=== PATIENT | female | born 1955 | race Caucasian/White ===

== ENCOUNTER → 2024-05-17 08:34 | Outpatient (REF) | payer MEDICARE, SELFPAY | LOC: WDC 08:34 | PROVIDERS: ATTENDING PHYSICIAN Family Medicine | DX: Z12.31 Encounter for screening mammogram for malignant neoplasm of breast (principal) | CPT/HCPCS: 77063; 77067 ==

== ENCOUNTER 2024-10-08 16:54 | Emergency (ER) | payer MEDICARE, SELFPAY ==
[2024-10-08 17:05] VITALS: BP 121/75
[2024-10-08 19:26] VITALS: BP 114/56
--- NOTE | 2024-10-08 20:27 | ED.GENMED ---
History of Present Illness
General
Chief Complaint: DVT/Possible Blood Clot
Source: patient and spouse
Time Seen by Provider: 10/08/24 17:47
History of Present Illness
History of Present Illness:
69-year-old female who presents with pain and redness to the right calf. She has a long history of having varicose veins. She states she was recently working her boots, felt almost like a pop in that area. She had noticed some hardness and
palpable cord. Patient presents for evaluation. She again has a long history of varicose veins. She is otherwise healthy. Denies shortness of breath or leg swelling. No numbness or tingling. Spouse says that she is very active.
Past History
Past History
ED Past Medical History: Arrthythmia (SVT) and Other (Varicose veins)
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
Social History
Tobacco: Non-smoker
Alcohol: None
Personal:
Living: with family
Employment: Employed ([employer])
Family History
Family History: Other (Noncontributory)
Phy Exam
Physical Exam
Physical Exam:
CONSTITUTIONAL Vital signs reviewed, Patient alert and oriented to person, place and time. Well-appearing
HEAD atraumatic, normocephalic.
EYES eyelids normal to inspection, Extraocular muscles intact, Conjunctiva normal, Sclera normal.
NECK normal range of motion, Trachea midline, no jugular venous distention.
RESP no respiratory distress
BACK No obvious deformities
UPPER EXTREMITY Gross Range of motion normal, gross motor strength normal
LOWER EXTREMITY Gross range of motion normal, Gross motor strength normal, no edema, varicose veins noted throughout the right lower extremity and up into the saphenous vein area just proximal to the right knee. Patient also has indurated area on
the medial right calf with palpable superficial clot. There is mild redness surrounding this. Mild tenderness
NEURO Speech normal, No focal motor deficits include, Renee coma scale 15, Memory normal, Cranial Nerves intact to screening exam.
SKIN Skin warm, dry, and normal in color.
PSYCHIATRIC Patient oriented to person place and time, Normal affect.
Course
Orders/Labs/Results
Orders:
Orders
10/08/24 16:55
Periph Venous Lwr Ext Rt US [US Periph Venous LOWER Ext RT] Urgent
Comment:
Reason For Exam: pain, hard varicose veins
Vital Signs
Initial and Last Documented VS:
Initial Vital Signs
Temp Pulse Resp BP Pulse Ox
98.8 F 110 16 121/75 97
10/08/24 17:05 10/08/24 17:05 10/08/24 17:05 10/08/24 17:05 10/08/24 17:05
Last Documented Vital Signs
Temp Pulse Resp BP Pulse Ox
98.8 F 86 18 114/56 98
10/08/24 17:05 10/08/24 19:26 10/08/24 19:26 10/08/24 19:26 10/08/24 19:26
MDM/Problems Addressed
Differential Diagnosis Includes:
DVT, cellulitis, superficial thrombophlebitis
MDM/Problems Addressed:
Superficial thrombophlebitis
*Radiology
Radiology exam reviewed: radiology read reviewed
*Pulse Oximetry
Patient hypoxic: no
*Critical Care Note
Total Time (30-74mins, 75-104mins- exclusive of procedures): Not Applicable
Data Reviewed
Source: patient and spouse
Prescriptions/Medications Considered But Not Given:
Considered Xarelto or Eliquis but no DVT
Patient Management
Escalation/DeEscalation of care consider admission/obs:
Patient is well-appearing with supra thrombophlebitis. Will recommend 81 mg aspirin as well as warm compresses and soaks. Patient agrees and will follow-up as an outpatient
ED Attending Note
-
Portions of this chart may have been created with voice recognition software.� Occasional wrong word or��sound alike� substitutions may have occurred due to the inherent limitations of voice recognition software.
Discharge Plan
Departure
Patient Disposition: Home (Routine Discharge)
Date of Disposition: 10/08/24
Time of Disposition: 20:27
Patient with high blood pressure during this ER visit?: No
Discharge Problem:
Superficial thrombophlebitis
Instructions: Superficial vein phlebitis and thrombosis
Prescriptions:
No Action
calcium carb-D3-mag ox-zinc ox [Atif Mag Zinc Plus D3] 1 EACH tablet
1 tab PO DAILY
propranolol 20 MG tablet
20 mg PO BID PRN (Reason: palpitations) Qty: 20 0RF
Referrals:
Estela Banks, [Family Provider] -
Activity Restrictions/Additional Instructions:
Please take 81 mg of aspirin daily. Please apply warm compresses as discussed. Return immediately for increased redness, fevers or any other concerns. Please see your doctor next 1 week if symptoms persist. Also consider seeing a vein specialist
for further management
Interventions
Interventions:
*Risk Screen - Suicide Last Done: 10/08/24 17:07
*Neglect/Abuse Screening Last Done: 10/08/24 17:07
*ED COVID-19 Vaccine History Last Done: 10/08/24 17:07
ED- Cardiac Assessment Last Done: 10/08/24 18:01
ED- Pulmonary Assessment Last Done: 10/08/24 18:01
ED-Peripheral Vascular Assessment Last Done: 10/08/24 18:01
ED-Skin Assessment Last Done: 10/08/24 18:01
Discharge Date and Time
Print Language: KAZAKH
== END 2024-10-08 20:45 | disposition home or self-care (01) ==
LOC: EMR 16:54
PROVIDERS: EMERGENCY PHYSICIAN Emergency Medicine; FAMILY PHYSICIAN Family Medicine
DX: I80.9 Phlebitis and thrombophlebitis of unspecified site (principal); M25.561 Pain in right knee; I47.10 Supraventricular tachycardia, unspecified; I83.90 Asymptomatic varicose veins of unspecified lower extremity
CPT/HCPCS: 99284; 93971

== ENCOUNTER 2024-10-16 09:55 | Emergency (ER) | payer MEDICARE, SELFPAY ==
[2024-10-16 10:03] VITALS: BP 140/85
[2024-10-16 11:34] VITALS: BP 143/99; BMI 20.8
[2024-10-16 12:00] VITALS: BP 129/86
[2024-10-16 13:28] VITALS: BP 129/85
--- NOTE | 2024-10-16 13:45 | CM ---
CM attempted to call patient's [facility] pharmacy. Pharmacy is closed for lunch. CM will call back.
--- NOTE | 2024-10-16 13:55 | ED.GENMED ---
History of Present Illness
General
Chief Complaint: Musculo-Skeletal Complaint
Source: patient
Exam Limitations: none
Time Seen by Provider: 10/16/24 12:50
Nursing documentation reviewed up to this point in time: agreed with
History of Present Illness
History of Present Illness:
69 y/o F
h/o SVT
here with right thigh redness/swelling for a few days
last week 10/08 was seen here for calf vein swelling secondary to superficial thrombophlebitis
pt had no DVT
she was treated with 81 mg asa and has been doin gwarm compresses and now that area is not red and tender but she has a medial thigh swelling and redness that is similar
no cp, sob, fever, chils numbness
she is very active and concerned about AC.
Past History
Past History
ED Past Medical History: Arrthythmia (SVT) and Other (Varicose veins)
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
Social History
Tobacco: Non-smoker
Alcohol: None
Personal:
Living: with family
Employment: Employed ([employer])
Family History
Family History: Other (Noncontributory)
Review of Systems
Review of Systems
Allergies reviewed?: Yes
All Other Systems: Not applicable
Phy Exam
Physical Exam
Physical Exam:
GENERAL: Alert , in no apparent distress
CARDIAC: Regular rate and rhythm .
LUNGS: Clear breath sounds bilaterally, no acute respiratory distress, no wheezes/rales/rhonchi
NEUROLOGICAL: Alert and oriented, no focal neuro deficits
SKIN: Warm and dry, skin intact.
redness and slight warmth and slight tenderness L medial distal thigh and behing L knee;
MUSCULOSKELETAL:varicose veins red slightly tender, in the distal thigh/knee
the varicose veins calf nontender, no erythema
PSYCH: Normal and appropriate interaction.
Course
Orders/Labs/Results
Orders:
Orders
10/16/24 11:38
Venous Doppler Lwr Ext Rt [US Periph Venous LOWER Ext RT] Urgent
Comment:
Reason For Exam: inflammation/pain/redness
Vital Signs
Initial and Last Documented VS:
Initial Vital Signs
Temp Pulse Resp BP Pulse Ox
36.8 C 98 16 140/85 99
10/16/24 10:03 10/16/24 10:03 10/16/24 10:03 10/16/24 10:03 10/16/24 10:03
Last Documented Vital Signs
Temp Pulse Resp BP Pulse Ox
36.8 C 98 16 131/81 100
10/16/24 10:03 10/16/24 10:03 10/16/24 10:03 10/16/24 14:00 10/16/24 14:15
MDM/Problems Addressed
Differential Diagnosis Includes:
superficial thrombophlebitis, dvt
MDM/Problems Addressed:
69 y/o F imlli veronica who has h/o SVT but is oterhwise hleathy
last week 10/08 had occlusive thrombus in a superficial R calf vein; she did asa 81 mg and warm compresses and that resolved and now she has pain/redness/swelling proximally in medial distal thigh and US shows occlusive thrombus in distal great
saphenous vein with nonocclusive thrombus of the proximal/mid great saphneous vein; and still the thrombosed varicose veins in the calf;
d/w dr. sandoval vascular who did recommend AC for 30 days
pcp f/u endcouraged
pt was hesitant because she is active;case pam consult for eliquis vs xarelto, eliquis is beter covered
she took asa and motrin today already so will start tonight
*Critical Care Note
Total Time (30-74mins, 75-104mins- exclusive of procedures): Not Applicable
ED Attending Note
-
Portions of this chart may have been created with voice recognition software.� Occasional wrong word or��sound alike� substitutions may have occurred due to the inherent limitations of voice recognition software.
Discharge Plan
Departure
Patient Disposition: Home (Routine Discharge)
Date of Disposition: 10/16/24
Time of Disposition: 14:20
Patient with high blood pressure during this ER visit?: No
Condition: Fair
Discharge Problem:
Superficial thrombophlebitis
Instructions: Phlebitis (DC)
Prescriptions:
New
Eliquis DVT-PE Treat 30D Start 5 mg (74 tabs) tablets,dose pack
See Rx Instructions .ROUTE .COMPLEX Qty: 74 0RF
Rx Instructions:
orally per package directions
No Action
calcium carb-D3-mag ox-zinc ox [Atif Mag Zinc Plus D3] 1 EACH tablet
1 tab PO DAILY
propranolol 20 MG tablet
20 mg PO BID PRN (Reason: palpitations) Qty: 20 0RF
Referrals:
Estela Banks DO [Family Provider] - Follow up in 10 days
Marj Sandoval MD [Active] - Follow up in 10 days
Activity Restrictions/Additional Instructions:
START ELIQUIS TWICE A DAY
10 mg TWICE A DAY FOR 7 DAYS THEN 5 MG TWICE A DAY
HAVE YOUR DOCTOR CHECK YOU IN 2 WEEKS
RETURN FOR ANY CONCERNS LIKE CHESTP AIN ,SHORTNESS OF BREATH, NUMB FOOT, COLD FOOT OR ANY CONCERNS
Interventions
Interventions:
*Risk Screen - Suicide Last Done: 10/16/24 10:05
*General Assessment Last Done: 10/16/24 11:34
*Neglect/Abuse Screening Last Done: 10/16/24 10:05
ED- Fall Risk Assessment Last Done: 10/16/24 11:34
*ED COVID-19 Vaccine History Last Done: 10/16/24 11:34
*Nursing Disposition Last Done: 10/16/24 14:33
ED-Musculoskeletal Assessment Last Done: 10/16/24 11:34
Discharge Date and Time
Discharge Date/Time: 10/16/24 14:39
Print Language: INDONESIAN
[2024-10-16 14:00] VITALS: BP 131/81
--- NOTE | 2024-10-16 14:08 | CM ---
CM confirmed Eliquis 5 mg BID is $103. Patient provided with coupon. CM updated ED PA.
== END 2024-10-16 14:39 | disposition home or self-care (01) ==
LOC: EMR 09:55
PROVIDERS: EMERGENCY PHYSICIAN Emergency Medicine; FAMILY PHYSICIAN Family Medicine
DX: I80.01 Phlebitis and thrombophlebitis of superficial vessels of right lower extremity (principal)
CPT/HCPCS: 99284; 93971

== ENCOUNTER → 2024-11-11 10:02 | Outpatient (REF) | payer MEDICARE, SELFPAY | LOC: RAD 10:02 | PROVIDERS: ATTENDING PHYSICIAN Family Medicine | DX: I80.01 Phlebitis and thrombophlebitis of superficial vessels of right lower extremity (principal) | CPT/HCPCS: 93971 ==

== ENCOUNTER → 2025-06-06 13:17 | Outpatient (REF) | payer MEDICARE, SELFPAY | LOC: WDC 13:17 | PROVIDERS: ATTENDING PHYSICIAN Obstetrics & Gynecology Gynecology; FAMILY PHYSICIAN Family Medicine | DX: Z78.0 Asymptomatic menopausal state (principal); Z12.31 Encounter for screening mammogram for malignant neoplasm of breast | CPT/HCPCS: 77063; 77067; 77080 ==